=== PATIENT | female | born 1980 | race Caucasian/White ===

== ENCOUNTER → 2017-08-06 | Outpatient (CLI) | payer OTHER | LOC: M RAD 09:15 | DX: I87.303 Chronic venous hypertension (idiopathic) without complications of bilateral lower extremity (principal) | CPT/HCPCS: 93970 ==

== ENCOUNTER 2017-10-29 08:24 | Day surgery (SDC) | payer OTHER ==
[~2017-10-29 08:24] MED LIST: LR 1,000 ML IV
[2017-10-29] MEDS ORDERED: PROPOFOL 200 MG/20 ML VIAL As Ordered ×2 (08:37→10:31)
[2017-10-29] MEDS ORDERED: MIDAZOLAM INJ 2 MG/2 ML VIAL (J2250) As Ordered (08:37)
[2017-10-29] MEDS ORDERED: fentaNYL 100 MCG/2 ML INJECTION (J3010) As Ordered (08:38)
[2017-10-29] MEDS ORDERED: LIDOCAINE 2% INJ 100 MG/5 ML SDV (FOR ANES.) As Ordered (08:38)
[2017-10-29 09:26] LABS: CONTROL LINE UCG INT CTR LINE PRESENT; URINE PREG TEST NEGATIVE (NEGATIVE)
[2017-10-29] MEDS ORDERED: ONDANSETRON 4MG/2ML VIAL (J2405) As Ordered (10:19)
[2017-10-29] MEDS ORDERED: dexameTHASONE 4 MG/ML 1ML VIAL (J1100) As Ordered (10:19)
[2017-10-29] MEDS ORDERED: KETOROLAC 60 MG/2 ML VIAL (J1885) As Ordered (10:19)
[2017-10-29] MEDS: LIDOCAINE W/EPINEPHRINE 1% 20ML VIAL As Ordered (10:24)
[2017-10-29] MEDS ORDERED: PERCOCET 5MG/325MG TAB As Ordered (10:58)
[2017-10-29] MEDS: PERCOCET 5MG/325MG TAB PO ×2 (11:00→11:35)
[2017-10-29] MEDS ORDERED: MORPHINE 4 MG/ML 1ML VIAL/SYRINGE (J2270) As Ordered (11:13)
[2017-10-29] MEDS ORDERED: fentaNYL 100 MCG/2 ML INJECTION (J3010) IV (11:15)
[2017-10-29] MEDS ORDERED: LR 1,000 ML IV (11:15)
[2017-10-29] MEDS ORDERED: ONDANSETRON 4MG/2ML VIAL (J2405) IV (11:15)
[2017-10-29] MEDS: MORPHINE 4 MG/ML 1ML VIAL/SYRINGE (J2270) IV (11:15)
== END 2017-10-29 12:26 | disposition home or self-care (01) ==
LOC: M SDC 08:24
DX: I87.2 Venous insufficiency (chronic) (peripheral) (principal); I78.1 Nevus, non-neoplastic
CPT/HCPCS: 36475

== ENCOUNTER → 2017-11-01 | Outpatient (CLI) | payer OTHER | LOC: M RAD 09:00 | DX: I82.811 Embolism and thrombosis of superficial veins of right lower extremity (principal); I83.811 Varicose veins of right lower extremity with pain | CPT/HCPCS: 93971 ==